=== PATIENT | female | born 1990 | race Caucasian/White ===

== ENCOUNTER 2016-07-31 06:58 | Day surgery (SDC) | payer BC ==
[~2016-07-31] VITALS: Ht 165.1 cm; Wt 91.2 kg
[~2016-07-31 06:58] MED LIST: BACTRIM,SEPT1 TABLET PO; MOTRIN800 MG PO; NORCO 5/3251 TABLET PO; PERCOCET 5/31 TABLET PO
[2016-07-31 07:41] LABS: BASOPHIL COUNT 0.1 K/uL (0-0.1); EOSINOPHIL (%) 2.8 % (0-5); EOSINOPHIL COUNT 0.3 K/uL (0-0.3); HEMATOCRIT 33.4 % (36.0-46.0); IMMATURE GRANULOCYTE (%) 1.3 % (0.0-0.7); IMMATURE GRANULOCYTE COUNT 1.5 K/uL; LYMPHOCYTE COUNT 2.9 K/uL (1.0-2.8); MCHC 32.6 G/DL (30.0-36.0); MCV 79.7 FL (83-99); MONOCYTE COUNT 1.4 K/uL (0-0.8); NEUTROPHIL (%) 57.6 % (45-76); NEUTROPHIL COUNT 6.5 K/uL (1.8-6.4); PLATELET COUNT 372 K/uL (156-360); RBC DIS.WIDTH-CV 14.6 % (11.8-14.6); RBC DIS.WIDTH-SD 41.5 % (39-53); RED BLOOD COUNT 4.19 M/uL (3.80-5.20); WHITE BLOOD COUNT 11.3 K/uL (4.1-10.2)
[2016-07-31 08:14] LABS: ANION GAP 10 MEQ/L (2-14); CHLORIDE 106 MEQ/L (99-109); GFR ESTIMATE (CALCULATED) > 59 mL/min/; GLUCOSE 109 mg/dL (70-99); POTASSIUM 3.6 MEQ/L (3.7-5.4); SAMPLE HEMOLYSIS CHECK 0; SAMPLE ICTERIC CHECK 0; SAMPLE LIPEMIA CHECK 0; SODIUM 138 MEQ/L (136-147); UREA NITROGEN (BUN) 11 mg/dL (9-23)
[2016-07-31 10:32] LABS: QUANTITATIVE HCG < 4.0 MIU/ML
[2016-07-31] MEDS ORDERED: AUGMENTIN875 MG PO (10:34)
[2016-07-31] MEDS ORDERED: MOTRIN600 MG PO (10:34)
[2016-07-31 16:40] VITALS: BP 107/72
[2016-07-31 19:24] VITALS: BP 118/68
[2016-07-31 23:16] VITALS: BP 101/65
[2016-08-01 03:49] VITALS: BP 113/60
[2016-08-01 06:45] LABS: MCH 25.6 PG (29.0-34.0); MCHC 31.5 G/DL (30.0-36.0); MCV 81.3 FL (83-99); MEAN PLAT.VOLUME 9.8 uM^3 (9.5-12.4); PLATELET COUNT 344 K/uL (156-360); RBC DIS.WIDTH-CV 14.6 % (11.8-14.6); RBC DIS.WIDTH-SD 43.4 % (39-53); RED BLOOD COUNT 4.06 M/uL (3.80-5.20)
[2016-08-01 08:07] VITALS: BP 118/63
[2016-08-01 08:10] LABS: Estimated Average Glucose 117 mg/dL (70-123); HEMOGLOBIN A1c (GLYCOHEMOGLOB) 5.7 % HGB (Below 5.7)
[2016-08-01 11:51] VITALS: BP 113/57
[2016-08-01 15:30] VITALS: BP 110/55
[2016-08-01 19:54] VITALS: BP 130/73
[2016-08-01 23:59] VITALS: BP 110/75
[2016-08-02 03:41] VITALS: BP 113/67
[2016-08-02 07:39] VITALS: BP 122/67
[2016-08-02] MEDS ORDERED: CLEOCIN300 MG PO (12:34)
[2016-08-02] MEDS ORDERED: OXYCODONE HCL5 MG PO (12:36)
== END 2016-08-02 13:40 | disposition home or self-care (01) ==
LOC: EME 06:58 → SDC 15:02 → 2EAST 15:05
PROVIDERS: Emergency Medicine; Surgery
DX: O91.12 Abscess of breast associated with the puerperium (principal); B95.61 Methicillin susceptible Staphylococcus aureus infection as the cause of diseases classified elsewhere; O99.13 Other diseases of the blood and blood-forming organs and certain disorders involving the immune mechanism complicating the puerperium; D72.829 Elevated white blood cell count, unspecified; O99.285 Endocrine, nutritional and metabolic diseases complicating the puerperium; R73.9 Hyperglycemia, unspecified; O99.215 Obesity complicating the puerperium; E66.9 Obesity, unspecified; O99.335 Smoking (tobacco) complicating the puerperium; F17.210 Nicotine dependence, cigarettes, uncomplicated; O99.03 Anemia complicating the puerperium; D64.9 Anemia, unspecified; E87.6 Hypokalemia
CPT/HCPCS: 80048; 83036; 84702; 85025; 85027; 87040; 87070; 87075; 87076; 87077; 87147; 87185; 87186; 87205; 88305; 99281; 99285; G0378; J1170; J1650; J1885; J2250; J3010; J3480; J7120; S0020